=== PATIENT | male | born 1985 | race Caucasian/White ===

== ENCOUNTER 2017-03-01 22:40 | Emergency (ER) | payer MEDICAID ==
[~2017-03-01] VITALS: Ht 198.1 cm; Wt 108.4 kg
[~2017-03-01 22:40] MED LIST: ETODOLAC400 MG PO; LODINE400 MG PO
--- NOTE | 2017-03-01 23:11 | Emergency Room Report ---
History of Present Illness Time Seen by [id number] Presenting Problem in Triage Pt arrived:Wheelchair Presenting Problem:NAUSEATED X 9 HOURS, VOMITING X 3 HOURS. WORKED 03/01 FROM 9A TO 7P [employer]. 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 N Clinical Suspician of Infection? N Mental Status: 1 - Regular (Normal Baseline) Sepsis Risk:Low Sepsis Risk Have you (or family members/close friends) recently traveled outside the [place]? N If Yes, where/when: Have you had exposure to infectious disease within the past month? N TB? Other? Specify: Source patient, RN notes reviewed, family, old records Exam Limitations no limitations Comment pt with nausea and vomiting sec to working in tob today Cardiac Chest Pain Chest pain indicative of cardiac No Timing/Duration this evening Severity moderate ALLERGIES Coded Allergies: morphine (Mild, 07/09/15) Home Medications Reported Medications No Known Home Medications History Medical History General CAD? No Angina: No VT: No Hypertension? No Hyperlipidemia? No CHF? No DVT? No PE? No COPD? No Asthma? No Anemia? No GERD? No Gastric ulcers? No GI Bleed? No Hernia? No Thyroid Problems? No Hypothyroidism? No CVA? No Seizures? No Diabetes? No Insulin Dependent: No Insulin Pump: No Home FSBS? No Renal Insuffiency? No End Stage Renal Disease? No UTI? No Stones? Yes BPH? No GB Disease: No Nephritic Syndrome? No Asplenia? No Hepatitis? No Sickle Cell Disease? No Arthritis? No Migraines? No Cataracts? No Glaucoma? No MRSA? No HIV? No TB? No Anxiety? No Depression? No Cancer? No More? Yes Additional hx: CROHNS Immunization Hx DT/Tetanus < 1 YR AGO Surgical Hx Previous Surgery?Y TONS/ADNOIDS WISDOM TEETH Social History Smoking Hx Smoker: Never Smoker Tobacco: No Are you/the child exposed to second-hand smoke: No Alcohol Alcohol: Yes Drugs none Review of Systems All Other Systems Reviewed and Negative Constitutional denies fever Eyes denies drainage ENT denies: ear discharge, epistaxis, throat pain. Respiratory denies cough, denies shortness of breath, denies wheezing Cardiovascular denies chest pain, denies syncope Gastrointestinal see HPI, nausea, vomiting Genitourinary denies: dysuria, frequency, hesitancy, hematuria. Musculoskeletal denies back pain, denies joint pain, denies joint swelling, denies neck pain Skin denies rash Psychiatric/Neurological denies headache, denies seizure Physical Exam Vital Signs Vital Signs Date Time Temp Pulse Resp B/P Pulse O2 O2 Flow FiO2 Ox Delivery Rate 03/01 2321 66 20 148/86 96 03/01 2251 97.9 78 14 148/ 97 - WBC >12,000 or <4,000 or 10% bands? 2 or more SIRS Criteria Met? B/P:148/86 MAP:106 Creatinine >2.0? UA output<0.5ml/kg/hr for 2 hrs? Platelet count >100,000? Lactate >2.0mmol/1? INR >1.2 or PTT > than 60 sec? Evidence of Organ Dysfunction? Provider documented clinical suspician of infection? N Sepsis Criteria Count: 0 Sepsis Risk: Low Sepsis Risk General Appearance no apparent distress Eye Exam - bilateral eye PERRL, bilateral eye EOMI Ear, Nose, Throat normal ENT inspection Neck supple Respiratory Status No: respiratory distress. 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 No Results/Orders Laboratory Tests 03/01/17 2305: Sodium 138, Potassium 3.4 L, Chloride 103, Carbon Dioxide 27, BUN 18, Creatinine 1.2, Estimated Creat Clear 134, Estimated GFR (MDRD) 70, Glucose 121 H, Calcium 10.1, Total Bilirubin 0.6, AST 28, ALT 48, Alkaline Phosphatase 86, Total Protein 7.8, Albumin 4.4, Globulin 3.4 H, Albumin/Globulin Ratio 1.3, Amylase 34, Lipase 124, WBC 9.4, RBC 5.23, Hgb 15.6, Hct 44.2, MCV 84.5, RDW 12.6, Plt Count 228, MPV 10.1, Gran % 68.1, Gran # 6.4, Lymphocytes % 23.1, Monocytes % 6.0, Eosinophils % 2.3, Basophils % 0.4, Lymphocytes # 2.2, Monocytes # 0.6, Eosinophils # 0.2, Basophils # 0.0, PUBS MCHC 35.4, MCH 29.9 Current Medication Orders Sig/Brendan Start time Last Medication Dose Route Stop Time Status Admin Sodium Chloride 1,000 ML .STK-MED ONE 03/01 2353 DC IV Promethazine HCl 0 .STK-MED ONE 03/01 234 DC .ROUTE Sodium Chloride 50 ML .STK-MED ONE 03/01 2346 DC IV Promethazine HCl 12.5 MG ONCE ONE 03/01 2345 DC 03/01 IV 03/01 2346 234 Sodium Chloride 25 ML ONCE ONE 03/01 2345 DC 03/01 IV 03/01 235 2348 Sodium Chloride 1,000 ML .Q1H1M 03/01 2345 AC 03/01 IV 03/02 0045 2354 Sodium Chloride 10 ML PRN PRN 03/01 2345 AC IV 03/02 2351 Famotidine 0 .STK-MED ONE 03/01 230 DC IV Ondansetron HCl 0 .STK-MED ONE 03/01 230 DC .ROUTE Sodium Chloride 1,000 ML .STK-MED ONE 03/01 2302 DC IV Metoclopramide HCl 0 .STK-MED ONE 03/01 230 DC .ROUTE Famotidine 20 MG ONCE ONE 03/01 2300 DC 03/01 IV 03/01 230 2306 Metoclopramide HCl 10 MG ONCE ONE 03/01 2300 DC 03/01 IVP 03/01 2301 2305 Ondansetron HCl 4 MG ONCE ONE 03/01 230 DC 03/01 IV 03/01 2301 2307 Sodium Chloride 10 ML PRN PRN 03/01 2300 AC IV 03/02 2249 Sodium Chloride 1,000 ML .Q1H1M 03/01 2300 DC 03/01 IV 03/02 0000 2305 Sodium Chloride 10 ML PRN PRN 03/01 2300 AC IV 03/02 2249 Sodium Chloride 8 ML ONCE ONE 03/01 2300 DC 03/01 IV 03/01 2301 2307 Orders Procedure Date/time Status IV SALINE LOCK 092249 Active URINALYSIS/COMPLETE 03/01 2250 Active LIPASE 03/01 2250 Complete COMPLETE METABOLIC PANEL 03/01 2250 Complete CBC WITH AUTO DIFF 03/01 2250 Complete AMYLASE 03/01 2250 Complete Departure Departure Time of Disposition 003 Disposition DC Home or Self Care(routine) Clinical Impression Primary Impression: Tobacco poisoning Qualifiers: Encounter type: initial encounter Injury intent: accidental or unintentional Qualified Code: T65.291A - Toxic effect of other tobacco and nicotine, accidental (unintentional), initial encounter Condition STABLE Patient Instructions DI for Vomiting -- Adult Additional Instructions fluids and see pcp for follow up Discharge Counseling Counseled pt/family regarding diagnosis, test results, follow up needs Prescriptions Current Visit Scripts No Known Home Medications ED Critical Care Critical Care No at 0040
[2017-03-01 23:14] LABS: HEMOGLOBIN 15.6 g/dL (14.1-18.0); LYMPH # 2.2 K/mm3 (0.7-4.5); LYMPH % 23.1 % (10-50)
[2017-03-02 00:52] VITALS: BP 117/61
== END 2017-03-02 00:53 | disposition home or self-care (01) ==
LOC: ER 22:40
PROVIDERS: Emergency Medicine
DX: T65.291A Toxic effect of other tobacco and nicotine, accidental (unintentional), initial encounter (principal)
CPT/HCPCS: J2405

== ENCOUNTER 2017-03-24 02:51 | Emergency (ER) | payer MEDICAID ==
[~2017-03-24] VITALS: Ht 198.1 cm; Wt 104.3 kg
--- OUTSIDE RECORDS SUMMARY | 2017-03-24 03:18 | External Medical Summary Rpt | CCD ---
Author Author , YUNIER FAYE Address Unknown Phone [email or web address] Care Team Providers Care Greenskeeper Name Role Phone JOSY FRANKLIN, JOSY Unavailable Unavailable FRANKLIN PATRICK ALL, PATRICK ALL Unavailable Unavailable [facility] Unavailable Unavailable PHYSICIANS, [facility] Unavailable Unavailable INC, [facility] Unavailable Unavailable [facility]ING [facility], [facility] JOSS JENNIFER, JOSS Unavailable Unavailable JENNIFER LLAMAS LIBRA, LLAMAS Unavailable Unavailable B[facility], Unavailable Unavailable PLLC, [facility] YVROSE M, YVROSE M Unavailable Unavailable [facility] Unavailable Unavailable OF NOT, [facility] MCDONALD Unavailable Unavailable GEETA REID, Unavailable Unavailable CHANA REID [facility] Unavailable Unavailable PHYSICIANS, [facility] BOLD[facility], Unavailable Unavailable [facility] YUAN THRELKELD II RAKAN, Unavailable Unavailable THRELKELD II RAKAN Purpose Continuity of Care Document - 03-17-2015 through 2016 Problems Code Diagnosis DOS Provider Status K5090 CROHNS 07-11-2015 ST DISEASE [facility] WITHOUT PHYSICIANS COMPLICATIO NS N200 CALCULUS OF 07-11-2015 KIDNEY [facility] PHYSICIANS N410 ACUTE 07-11-2015 PROSTATITIS [place] [facility] R1031 RIGHT LOWER 07-11-2015 [facility] [place] PAIN YUAN R1030 LOWER 07-09-2015 [place] [facility] PAIN [facility]AGING ASS UNSPECIFIED Z720 TOBACCO USE 07-09-2015 [facility] [id number] PERSONAL 07-09-2015 [facility]ORY [facility] URINARY INC CALCULI N23 UNSPECIFIED 07-07-2015 [facility] COLIC PHYSICIANS R109 UNSPECIFIED 07-07-2015 [facility] PAIN OF [facility] K6389 OTHER 04-24-2015 [place] SPECIFIED MEDICAL DISEASES OF IMAGING ASS INTESTINE N3289 OTHER 04-24-2015 [place] SPECIFIED MEDICAL DISORDERS IMAGING ASS OF BLADDER R1084 GENERALIZED 04-24-2015 [facility] ABDOMINAL PHYSICIANS, PAIN PLLC [id number] SPRAIN 04-07-2015 OTHER [facility] LIGAMENT LT PHYSICIANS ANKLE INITIAL ENCOUNTER T1490 INJURY 04-07-2015 UNSPECIFIED [facility] PH[facility]ICIANS B36313 PAIN IN 03-17-2015 [place] [facility]OW [facility] [id number] UNSPECIFIED 03-17-2015 [facility] RIGHT ELBOW INC INITIAL ENCOUNTER [id number] UNSPECIFIED 03-17-2015 [facility] [place] PHYSIC[facility]ANS, LEFT ELBOW [facility] INITIAL ENCOUNTER K50.111 Crohn's disease of large intestine with rectal bleeding M79.604 Pain In Right Leg R07.9 Chest pain, unspecified S50.01XA Contusion of right elbow, initial encounter S61.219A Laceration without foreign body of unspecified finger without damage to nail, initial encounter T15.91XA Foreign body on external eye, part unspecified , right eye, initial encounter Procedures Procedure [place] [address] [facility] ABDOMEN & 6 [place] [place] PELVIS YUAN YUAN W/CONTRAS T MATERIAL LOCM Q9967 [facility] 300-399 6 [facility] [place] MG/ML YUAN YU[place] [address] [facility] INFUSION 6 [facility] THERAPY/P INC INC ROPHYLAXI S /DX 1ST TO 1 HR THERAPEUT 22007 [facility] IC 6 [facility] INJECTION INC INC IV PUSH EACH NEW DRUG INJECTION J2405 [facility] 6 [facility] ONDANSETR INC INC ON HCL PER 1 MG URNLS DIP 05556 [facility] 6 [facility] STICK/TAB INC INC LET REAGENT AUTO MICROSCOP Y BLOOD 81034 [facility] COUNT 6 [facility] COMPLETE INC INC AUTO&AUTO DIFRNTL WBC COMPREHEN 20661 [facility] SIVE 6 [facility] [place] [address] [place] PATRICK ALL ABDOMEN & 6 MEDICAL PELVIS IMAGING W/[place] [address] [facility] [place] ABDOMEN & 6 BRA PELVIS ASSOCIATE W/[place] [address] [facility] [place] ABDOMEN & 5 [facility] PELVIS INC INC W/O CONTRAST MATERIAL COMPREHEN 61429 [facility] SIVE 5 [facility] [place] [address] OPAL [facility] AMYLASE 5 [facility] INC INC BLOOD 98686 [facility] COUNT 5 [facility] COMPLETE INC INC AUTO&AUTO DIFRNTL WBC URNLS DIP 13416 [facility] 5 [facility] STICK/TAB INC INC LET REAGENT AUTO MICROSCOP Y THERAPEUT 34135 [facility] IC 5 [facility] H[facility] INJECTION [place] [address] [facility] INFUSION 5 [facility] THERAPY/P INC INC ROPHYLAXI S /DX 1ST TO 1 HR INJECTION J2405 [facility] 5 [facility] ONDANSETR INC INC ON HCL PER 1 [place] [address] [facility] LIPASE 5 [facility] INC INC RADEX [address] ST YVROSE M ANKLE 5 [facility] COMPLETE MINIMUM 3 PHYSICIAN VIEWS S ANKLE L4350 ST YVROSE M CONTROL 5 [facility] ORTHOSIS STIRRUP PHYSICIAN STYL S RIGID PREFAB RADEX 23696 [place] BEINE[place] EL[place] 5 MEDICAL [place] COMPLETE IMAGING MINIMUM 3 ASS VIEWS Encounters Encounter Start End Date Code Location Performer Type Date OFFICE [address] [facility] OUTPATIEN 6 6 [place] II RAKAN T VISIT 25 PHYSICIAN MINUTES [facility] ST. - 6 6 [place] OUTPATIEN YUAN T EMERGENCY 86650 [facility] DEPT 6 6 PHYSICIAN U FRANKLIN VISIT S, [facility] HIGH SEVERITY& THREAT [facility] OPAL - 6 6 [facility] OUTPATIEN INC T EMERGENCY 40080 OPAL 6 6 [facility] DEPARTMEN INC T VISIT MODERATE SEVERITY EMERGENCY 53209 CLARENCE SALINAS 6 6 [facility]IAN HIGH/URGE S NT SEVERITY EMERGENCY 49941 [facility] DEPT 5 5 PHYSICIAN Alexandre REID VISIT S, PLLC HIGH SEVERITY& THREAT [facility] EMERGENCY 99459 [facility] 5 5 [facility] T VISIT HIGH/URGE NT SEVERITY HOSPITAL OPAL - 5 5 MEM H[facility] OUTPATIEN INC T OFFICE [address] [facility] 5 5 [place] T NEW [address] [facility] OPAL - 5 5 [facility] OUTPATIEN INC T EMERGENCY 00501 BLESS[facility] COREAS 5 5 PHYSICIAN JENNIFER VALDES S, [facility] T VISIT MODERATE SEVERITY EMERGENCY 63673 OP[facility] 5 5 [facility] T VISIT LOW/MODER SEVERITY
--- OUTSIDE RECORDS SUMMARY | 2017-03-24 03:18 | External Medical Summary Rpt | CCD ---
Demographics Home Phone Preferred Language Hungarian Marital Status Unknown Yazidism Affiliation Unknown Race Unknown Ethnic Group Unknown Author Author , YUNIER FAYE Address Unknown Phone [email or web address] Immunization Name Date Rout CVX Reac Dose Comm Prov Is Faci e tion ent ider Refu lity Give sed n Tdap 02-1 Intr 115 999 Hist 1050 No 1050 , 5-20 amus oric 0 0 Adso 16 cula al rbed r Info rmat ion - Sour ce Unsp ecif ied
--- OUTSIDE RECORDS SUMMARY | 2017-03-24 03:18 | External Medical Summary Rpt | CCD ---
Demographics Home Phone Preferred Language Pashto Marital Status Unknown Judaism Affiliation Unknown Race Unknown Ethnic Group Unknown Author Author , YUNIER FAYE Address Unknown Phone Immunization Name Date Rout CVX Reac Dose Comm Prov Is Faci e tion ent ider Refu lity Give sed n Tdap 02-1 Intr 115 999 Hist 1050 No 1050 , 5-20 amus oric 0 0 Adso 16 cula al rbed r Info rmat ion - Sour ce Unsp ecif ied
--- OUTSIDE RECORDS SUMMARY | 2017-03-24 03:18 | External Medical Summary Rpt | CCD ---
Author Author , YUNIER FAYE Address Unknown Phone [email or web address] Care Team Providers Care Director Of Corporate Responsibility Name Role Phone JOSY FRANKLIN, ULISESNASEEMMARK Unavailable Unavailable FRANKLIN PATRICK ALL, PATRICK ALL Unavailable Unavailable [facility] Unavailable Unavailable PHYSICIANS, [facility] SULMA ANAMARIA, Unavailable Unavailable [facility] Unavailable Unavailable INC, [facility] Unavailable Unavailable [facility], [facility] JOSS JENNIFER, JOSS Unavailable Unavailable JENNIFER LLAMAS BRA, LLAMAS Unavailable Unavailable [facility], Unavailable Unavailable PLLC, [facility] YVROSE M, YVROSE M Unavailable Unavailable [facility] Unavailable Unavailable OF NOT, [facility] BRAD MCDONALD Unavailable Unavailable GEETA REID, Unavailable Unavailable CHANA REID [facility] Unavailable Unavailable PHYSICIANS, [facility]ICIANS [facility] BOLDEN, Unavailable Unavailable [facility] YUAN THRELKELD II RAKAN, Unavailable Unavailable THRELKELD II RAKAN Purpose Continuity of Care Document - 03-17-2015 through 2016 Problems Code Diagnosis DOS Provider Status K5090 CROHNS 07-11-2015 ST DISEASE [facility] WITHOUT PHYSICIANS COMPLICATIO NS N200 CALCULUS OF 07-11-2015 ST KIDNEY [facility] PHYSICIANS N410 ACUTE 07-11-2015 ST PROSTATITIS [facility] PHYSICIANS R1031 RIGHT LOWER 07-11-2015 [facility] PAIN YUAN R1030 LOWER 07-09-2015 [place] [facility] IMAGING ASS UNSPECIFIED Z720 TOBACCO USE 07-09-2015 [facility] [id number] PERSONAL 07-09-2015 [facility] H[facility]ORY [facility] URINARY INC CALCULI N23 UNSPECIFIED 07-07-2015 [facility] RENAL EMERGENCY COLIC PHYSICIANS R109 UNSPECIFIED 07-07-2015 [facility] PAIN OF [facility] K6389 OTHER 04-24-2015 [place] SPECIFIED MEDICAL DISEASES OF IMAGING ASS INTESTINE N3289 OTHER 04-24-2015 [place] SPECIFIED MEDICAL DISORDERS IMAGING ASS OF BLADDER R1084 GENERALIZED 04-24-2015 [facility], PAIN PLLC [id number] SPRAIN 04-07-2015 OTHER [facility] LIGAMENT LT PHYSICIANS ANKLE INITIAL ENCOUNTER T1490 INJURY 04-07-2015 UNSPECIFIED [facility] PHYSICIANS I58358 PAIN IN 03-17-2015 [place] [facility]OW [facility] IM[facility] [id number] UNSPECIFIED 03-17-2015 [facility] RIGHT ELBOW INC INITIAL ENCOUNTER S60660U UNSPECIFIED 03-17-2015 [facility], LEFT ELBOW PLLC INITIAL ENCOUNTER Procedures Procedure DOS Code Location Performer Comment LOCM Q9967 [facility] 300-399 6 [facility] [place] MG/ML YUAN YU[place] [address] [facility] [place]SE[place] PELVIS YUAN YUAN W/CONTRAS T MATERIAL THERAPEUT 93474 [facility] IC 6 [facility] INJECTION [place] [address] [facility] INFUSION 6 [facility] THERAPY/P INC INC ROPHYLAXI S /DX 1ST TO 1 HR INJECTION J2405 [facility] 6 [facility] ONDANSETR INC INC ON HCL PER 1 MG URNLS DIP 78533 [facility] 6 [facility] STICK/TAB INC INC LET REAGENT AUTO MICROSCOP Y COMPREHEN 42666 [facility] SIVE 6 [facility] [place] [address] [place] PATRICK ALL ABDOMEN & 6 MEDICAL PELVIS IMAGING W/O ASS CONTRAST MATERIAL BLOOD 99548 [facility] COUNT 6 [facility] COMPLETE INC INC AUTO&[place] [address] [facility] [place] ABDOMEN & 6 BRA PELVIS ASSOCIATE W/[place] [address] [place] [facility]UL[facility] ABDOMEN & 5 MEDICAL ANAMARIA PELVIS IMAGING W/[place] [address] [facility] LIPASE 5 [place] [address] [facility] AMYLASE 5 [facility] INC INC COMPREHEN 11634 [facility] SIVE 5 [facility] METABOLIC INC INC PANEL INJECTION J2405 [facility] 5 [facility] ONDANSETR INC INC ON HCL PER 1 MG BLOOD 72574 [facility] COUNT 5 [facility] COMPLETE INC INC AUTO&AUTO DIFRNTL WBC URNLS DIP 49348 [facility] 5 [facility] STICK/TAB INC [place] [address] [facility] INFUSION 5 [facility] THERAPY/P INC INC ROPHYLAXI S /DX 1ST TO 1 HR THERAPEUT 85561 [facility] IC 5 [facility] INJECTION INC INC IV PUSH EACH NEW DRUG RADEX 93896 ST YVROSE M ANKLE 5 [place] COMPLETE MINIMUM 3 PHYSICIAN VIEWS S ANKLE L4350 ST YVROSE M CONTROL 5 [facility] ORTHOSIS STIRRUP PHYSICIAN STYL S RIGID PREFAB RADEX 88012 [place] BEINEKE ELBOW 5 MEDICAL [place] COMPLETE IMAGING MINIMUM 3 ASS VIEWS Encounters Encounter Start End Date Code Location Performer Type Date HOSPITAL ST[facility] - 6 6 [place] OUTJESSEEN YUAN T OFFICE [facility] [place] T VISIT 25 PHYSICIAN MINUTES S EMERGENCY 12677 [facility] DEPT 6 6 PHYSICIAN U FRANKLIN VISIT S, PLLC HIGH SEVERITY& THREAT [facility] - 6 6 [facility] OUTPATIEN INC T EMERGENCY 79286 OPAL 6 6 [facility] DEPARTMEN INC T VISIT MODERATE SEVERITY EMERGENCY 69275 CL[facility] SALINAS 6 6 EMERGENCY [facility] T VISIT PHYSICIAN HIGH/URGE S NT SEVERITY HOSPITAL OPAL - 5 5 [facility] OUTPATIEN INC T EMERGENCY 01825 OPAL 5 5 [facility] DEPARTMEN INC T VISIT HIGH/URGE NT SEVERITY EMERGENCY 49390 [facility] DEPT 5 5 PHYSICIAN Alexandre REID VISIT S [facility] HIGH SEVERITY& THREAT FUN OFFICE [address] [facility] OUTPATIEN 5 5 [place] NEW [address] [facility] OPAL - 5 5 [facility] OUTPATIEN INC T EMERGENCY 01299 [facility] 5 5 PHYSICIAN JENNIFER Patel [facility] T VISIT MODERATE SEVERITY EMERGENCY 78039 OPAL 5 5 [facility] DEPARTMEN INC T VISIT LOW/MODER SEVERITY
--- OUTSIDE RECORDS SUMMARY | 2017-03-24 03:18 | External Medical Summary Rpt | CCD ---
Author Author , YUNIER FAYE Address Unknown Phone [email or web address] Care Team Providers Care Child Care Team Lead Name Role Phone JOSY FRANKLIN, ULISESNASEEMMARK Unavailable Unavailable FRANKLIN PATRICK ALL, PATRICK ALL Unavailable Unavailable [facility] Unavailable Unavailable PHYSICIANS, [facility] SULMA ANAMARIA, Unavailable Unavailable [facility]UL[facility] ANAMARIA [facility] Unavailable Unavailable [facility], [facility] Unavailable Unavailable [facility], [facility] JOSS JENNIFER, JOSS Unavailable Unavailable JENNIFER LLAMAS BRA, LLAMAS Unavailable Unavailable BRA [facility], Unavailable Unavailable PLL[facility], [facility] YVROSE M, YVROSE M Unavailable Unavailable [facility] Unavailable Unavailable OF NOT, [facility] BRAD MCDONALD Unavailable Unavailable GEETA [...] QUADRANT [place] PAIN YUAN R1030 LOWER 07-09-2015 [place] ABD[facility]INAL [facility] PAIN [facility]ING ASS UNSPECIFIED Z720 TOBACCO USE 07-09-2015 [facility] [id number] PERSONAL 07-09-2015 [facility] URINARY INC CALCULI N23 UNSPECIFIED 07-07-2015 [facility] RENAL EMERGENCY COLIC PHYSICIANS R109 UNSPECIFIED 07-07-2015 [facility] PAIN OF [facility] K6389 OTHER 04-24-2015 [place] SPECIFIED MEDICAL DISEASES OF IMAGING ASS INTESTINE N3289 OTHER 04-24-2015 [place] SPECIFIED MEDICAL DISORDERS IMAGING ASS OF BLADDER R1084 GENERALIZED 04-24-2015 [facility], PAIN PLLC [id number] SPRAIN 04-07-2015 OTHER [facility] LIGAMENT LT PHYSICIANS ANKLE INITIAL ENCOUNTER T1490 INJURY 04-07-2015 UNSPECIFIED [facility] PH[facility]ICIANS V79346 PAIN IN 03-17-2015 [place] RIGHT ELBOW MEDICAL IMAGING ASS [id number] UNSPECIFIED 03-17-2015 [facility] RIGHT ELBOW INC INITIAL ENCOUNTER [id number] UNSPECIFIED 03-17-2015 [facility], LEFT ELBOW PLLC INITIAL ENCOUNTER Procedures Procedure DOS Code Location Performer Comment LOCM Q9967 [facility] [phone] 6 [facility] [place] MG/ML YUAN YU[place] [address] [facility] ABDOMEN & 6 [facility] POSEY PELVIS YUAN YUAN W/CONTRAS T MATERIAL THERAPEUT 51892 [facility] IC 6 [facility] INJECTION [place] [address] [facility] INFUSION 6 [facility] THERAPY/P INC INC ROPHYLAXI S /DX 1ST TO 1 HR INJECTION J2405 [facility] 6 [facility] ONDANSETR INC INC ON HCL PER 1 MG URNLS DIP 20145 [facility] 6 [facility] STICK/TAB INC INC LET REAGENT AUTO MICROSCOP Y COMPREHEN 52977 [facility] SIVE 6 [facility] [place] [address] [place] PATRICK ALL ABDOMEN & 6 MEDICAL PELVIS IMAGING W/O ASS CONTRAST MATERIAL BLOOD 38296 [facility] COUNT 6 [facility] COMPLETE INC INC AUTO&[place] [address] [facility] ABDOMEN & 6 BRA PELVIS ASSOCIATE W/[place] [address] [place] SULMA ABDOMEN & 5 MEDICAL ANAMARIA PELVIS IMAGING W/[place] [address] OPAL [facility] LIPASE 5 [place] [address] [facility] AMYLASE 5 [facility] INC INC COMPREHEN 69118 [facility] SIVE 5 [facility] METABOLIC INC INC PANEL INJECTION J2405 [facility] 5 [facility] ONDANSETR INC INC ON HCL PER 1 MG BLOOD 37778 [facility] COUNT 5 [facility] COMPLETE INC INC AUTO&AUTO DIFRNTL WBC URNLS DIP 18733 [facility] 5 [facility] STICK/TAB INC [place] [address] [facility] INFUSION 5 [facility] THERAPY/P INC INC ROPHYLAXI S /DX 1ST TO 1 HR THERAPEUT 68012 [facility] IC 5 [facility] INJECTION INC INC IV PUSH EACH NEW DRUG RADEX 11568 ST YVROSE M ANKLE 5 [facility] COMPLETE MINIMUM 3 PHYSICIAN VIEWS S ANKLE L4350 ST YVROSE M CONTROL 5 [facility] ORTHOSIS STIRRUP PHYSICIAN STYL S RIGID PREFAB RADEX 70834 [place] BEINEKE ELBOW 5 MEDICAL [place] COMPLETE IMAGING MINIMUM 3 ASS VIEWS Encounters Encounter Start End Date Code Location Performer Type Date [facility]OSPITAL ST[facility] - 6 6 [facility] OUTJESSEEN YUAN T OFFICE 85979 [facility] 6 6 [place] T VISIT 25 PHYSICIAN MINUTES S EMERGENCY 12924 [facility] DEPT 6 6 PHYSICIAN U FRANKLIN VISIT S, PLLC HIGH SEVERITY& THREAT [facility] - 6 6 [facility] OUTPATIEN INC T EMERGENCY 41590 [facility] 6 6 [facility] DEPARTMEN INC T VISIT MODERATE SEVERITY EMERGENCY 67032 [facility] SALINAS 6 6 EMERGENCY [facility] T VISIT PHYSICIAN HIGH/URGE S NT SEVERITY HOSPITAL OPAL - 5 5 [facility] OUTPATIEN INC T EMERGENCY 71650 [facility] 5 5 [facility] DEPARTMEN INC T VISIT HIGH/URGE NT SEVERITY EMERGENCY 20973 [facility] DEPT 5 5 PHYSICIAN Alexandre REID VISIT [facility] HIGH SEVERITY& THREAT FUN OFFICE [address] [facility] OUTPATIEN 5 5 [facility] Rasmussen NEW 30 MINUTES [facility] OPAL - 5 5 [facility] OUTPATIEN INC T EMERGENCY 80702 [facility]ORE[facility] [address] [facility] T VISIT MODERATE SEVERITY EMERGENCY 60864 [facility] 5 5 [facility] DEPARTMEN INC T VISIT LOW/MODER SEVERITY
--- OUTSIDE RECORDS SUMMARY | 2017-03-24 03:18 | External Medical Summary Rpt ---
Author Author YUNIER Shannon, [employer]IER [employer] Organization [employer] Address Unknown Phone Unavailable
--- OUTSIDE RECORDS SUMMARY | 2017-03-24 03:18 | External Medical Summary Rpt | CCD ---
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AL[facility]Y BOLDEN, Unavailable Unavailable [facility] YUAN THRELKELD II RAKAN, Unavailable Unavailable THRELKELD II RAKAN Purpose Continuity of Care Document - 03-17-2015 through 2016 Problems Code Diagnosis DOS Provider Status K5090 CROHNS 07-11-2015 ST DISEASE [facility] WITHOUT PHYSICIANS COMPLICATIO NS N200 CALCULUS OF 07-11-2015 KIDNEY [facility] PHYSICIANS N410 ACUTE 07-11-2015 PROSTATITIS [facility] R1031 RIGHT LOWER 07-11-2015 [facility]. [facility] GUYS PAIN YUAN R1030 LOWER 07-09-2015 [place] A[facility]AL [facility]ICAL PAIN IMAGING ASS UNSPECIFIED Z720 TOBACCO USE 07-09-2015 [facility] INC Z65110 PERSONAL 07-09-2015 [facility] URINARY INC CALCULI N23 UNSPECIFIED 07-07-2015 [facility] COLIC PHYSICIANS R109 UNSPECIFIED 07-07-2015 [facility] PAIN OF [facility] K6389 OTHER 04-24-2015 [place] SPECIFIED MEDICAL DISEASES OF IMAGING ASS INTESTINE N3289 OTHER 04-24-2015 [place] SPECIFIED MEDICAL DISORDERS IMAGING ASS OF BLADDER R1084 GENERALIZED 04-24-2015 [facility], PAIN PLLC [id number] SPRAIN 04-07-2015 OTHER [facility] LIGAMENT LT PHYSICIANS ANKLE INITIAL ENCOUNTER T1490 INJURY 04-07-2015 UNSPECIFIED [facility] PHYSICIANS Q54486 PAIN IN 03-17-2015 [place] RIGHT [facility]OW MEDICAL IM[facility]ING [facility] B66915M UNSPECIFIED 03-17-2015 [facility] RIGHT ELBOW INC INITIAL ENCOUNTER J13128M UNSPECIFIED 03-17-2015 [facility], LEFT ELBOW [facility] INITIAL ENCOUNTER K50.111 Crohn's disease of large intestine with rectal bleeding M79.604 Pain In Right Leg R07.9 Chest pain, unspecified S50.01XA Contusion of right elbow, initial encounter S61.219A Laceration without foreign body of unspecified finger without damage to nail, initial encounter T15.91XA Foreign body on external eye, part unspecified , right eye, initial encounter Procedures Procedure [place] [address] [facility] ABDOMEN & 6 [facility] [place] PELVIS YUAN YUAN W/CONTRAS T MATERIAL LOCM Q9967 [facility] 300-399 6 [facility] [place] MG/ML YUAN YU[place] [address] [facility] INFUSION 6 [facility] THERAPY/P INC INC ROPHYLAXI S /DX 1ST TO 1 HR THERAPEUT 53225 [facility] IC 6 [facility] INJECTION INC INC IV PUSH EACH NEW DRUG INJECTION J2405 [facility] 6 [facility] ONDANSETR INC INC ON HCL PER 1 MG URNLS DIP 50724 [facility] 6 [facility] STICK/TAB INC INC LET REAGENT AUTO MICROSCOP Y BLOOD 73639 [facility] COUNT 6 [facility] COMPLETE INC INC AUTO&AUTO DIFRNTL WBC COMPREHEN 54798 [facility] SIVE 6 [facility] [place] [address] [place] PATRICK ALL ABDOMEN & 6 MEDICAL PELVIS IMAGING [place] [address] [facility] [place] ABDOMEN & 6 BRA PELVIS ASSOCIATE W/[place] [address] OPAL [place] ABDOMEN & 5 [facility] PELVIS INC INC W/O CONTRAST MATERIAL COMPREHEN 34689 [facility] SIVE 5 [facility] [place] [address] OPAL OPAL AMYLASE 5 [facility] INC INC BLOOD 74028 OP[facility] COUNT 5 [facility] COMPLETE INC INC AUTO&AUTO DIFRNTL WBC URNLS DIP 16670 OP[facility] JO[facility]PH 5 [facility] STICK/TAB INC INC LET REAGENT AUTO MICROSCOP Y THERAPEUT 22692 [facility] IC 5 [facility] INJECTION INC [place] [address] [facility] INFUSION 5 [facility] THERAPY/P INC INC ROPHYLAXI S /DX 1ST TO 1 HR INJECTION J2405 [facility] 5 [facility] ONDANSETR INC INC ON HCL PER 1 [place] [address] [facility] LIPASE 5 [facility] INC INC RADEX 03407 ST YVROSE M ANKLE 5 [facility] COMPLETE MINIMUM 3 PHYSICIAN VIEWS S ANKLE L4350 ST YVROSE M CONTROL 5 [facility] ORTHOSIS STIRRUP PHYSICIAN STYL S RIGID PREFAB RADEX 02318 [place] BEINEKE ELBOW 5 MEDICAL [place] COMPLETE IMAGING MINIMUM 3 ASS VIEWS Encounters Encounter Start End Date Code Location Performer Type Date OFFICE [address] [facility] OUTPATIEN 6 6 [place] II RAKAN T VISIT 25 PHYSICIAN MINUTES [facility] ST. - 6 6 [place] OUTPATIEN YUAN T EMERGENCY 78830 [facility] DEPT 6 6 PHYSICIAN U FRANKLIN VISIT S, [facility] HIGH SEVERITY& THREAT [facility] OPAL - 6 6 [facility] OUTPATIEN INC T EMERGENCY 34317 OPAL 6 6 [facility] DEPARTMEN INC T VISIT MODERATE SEVERITY EMERGENCY 05542 [facility] SALINAS 6 6 EMERGENCY [facility] VIS[facility] PHYSICIAN HIGH/URGE S NT SEVERITY EMERGENCY 73113 [facility] DEPT 5 5 PHYSICIAN Alexandre REID VISIT S, PLLC HIGH SEVERITY& THREAT [facility] EMERGENCY 04542 OP[facility] 5 5 [facility] T VISIT HIGH/URGE NT SEVERITY HOSPITAL OPAL - 5 5 [facility] OUTPATIEN INC T OFFICE 79936 [facility] [place] T NEW 30 MINUTES [facility] - 5 [facility] OUT[facility] T EMERGENCY 69827 [facility] 5 5 PHYSICIAN JENNIFER VALDES S, [facility] T VISIT MODERATE SEVERITY EMERGENCY 11009 OP[facility] 5 5 [facility] T VISIT LOW/MODER SEVERITY
--- NOTE | 2017-03-24 03:19 | Emergency Room Report ---
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 N Clinical Suspician of Infection? N Mental Status: 1 - Regular (Normal Baseline) Sepsis Risk:Low Sepsis Risk Have you (or family members/close friends) recently traveled outside the [place]? N If Yes, where/when: Have you had exposure to infectious disease within the past month? N TB? Other? Specify: Source patient, RN notes reviewed, family, old records Exam Limitations no limitations Comment pt with progressive rt lower abd pain with dec po intake Cardiac Chest Pain Chest pain indicative of cardiac No Timing/Duration this evening Severity moderate ALLERGIES Coded Allergies: morphine (Mild, 07/09/15) Home Medications Reported Medications No Known Home Medications History Medical History General CAD? No Angina: Yes [place]: No Hypertension? No Hyperlipidemia? No CHF? No DVT? No PE? No COPD? No Asthma? No Anemia? No GERD? No Gastric ulcers? No GI Bleed? No Hernia? No Thyroid Problems? No Hypothyroidism? No CVA? No Seizures? No Diabetes? No Insulin Dependent: No Insulin Pump: No Home FSBS? No Renal Insuffiency? No End Stage Renal Disease? No UTI? No Stones? Yes BPH? No GB Disease: No Nephritic Syndrome? No Asplenia? No Hepatitis? No Sickle Cell Disease? No Arthritis? No Migraines? No Cataracts? No Glaucoma? No MRSA? No HIV? No TB? No Anxiety? No Depression? No Cancer? No More? Yes Additional hx: CROHNS Immunization Hx DT/Tetanus < 1 YR AGO Surgical Hx Previous Surgery?Y TONS/ADNOIDS WISDOM TEETH Social History Smoking Hx Smoker: Never Smoker Tobacco: No Alcohol Alcohol: Yes Drugs none Review of Systems All Other Systems Reviewed and Negative Constitutional denies fever Eyes denies drainage ENT denies: ear discharge, epistaxis, throat pain. Respiratory denies cough, denies shortness of breath Cardiovascular denies chest pain, denies palpitations, denies syncope Gastrointestinal see HPI, abdominal pain, denies diarrhea, nausea, vomiting Genitourinary denies: dysuria, frequency, hesitancy, hematuria. Musculoskeletal denies back pain, denies joint pain, denies joint swelling, denies neck pain Skin denies rash Psychiatric/Neurological denies headache, denies seizure Physical Exam Vital Signs Vital Signs Date Time Temp Pulse Resp B/P Pulse O2 O2 Flow FiO2 Ox Delivery Rate 03/24 0438 20 03/24 0257 97.7 78 20 147/95 98 - WBC >12,000 or <4,000 or 10% bands? 2 or more SIRS Criteria Met? B/P:147/95 MAP:112 Creatinine >2.0? UA output<0.5ml/kg/hr for 2 hrs? Platelet count >100,000? Lactate >2.0mmol/1? INR >1.2 or PTT > than 60 sec? Evidence of Organ Dysfunction? Provider documented clinical suspician of infection? N Sepsis Criteria Count: 1 Sepsis Risk: Low Sepsis Risk General Appearance no apparent distress Eye Exam - bilateral eye PERRL, bilateral eye EOMI Ear, Nose, Throat normal ENT inspection Neck supple Respiratory Status No: respiratory distress. Lung Sounds bilateral: lungs clear. 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 No Results/Orders Laboratory Tests 03/24/17 0525: Urine Color YELLOW, Urine Appearance CLOUDY, Urine pH 7.0, Ur Specific Minetto 1.015, Urine Protein NEGATIVE, Urine Ketones NEGATIVE, Urine Blood NEGATIVE, Urine Nitrate NEGATIVE, Urine Bilirubin NEGATIVE, Urine Urobilinogen 0.2, Ur Leukocyte Esterase NEGATIVE, Amorphous Sediment 4+, Urine Glucose NEGATIVE 03/24/17 0307: Sodium 140, Potassium 3.7, Chloride 103, Carbon Dioxide 31, BUN 16, Creatinine 1.1, Estimated Creat Clear 141, Estimated GFR (MDRD) 77, Glucose 104, Calcium 9.5, Total Bilirubin 0.2, AST 16, ALT 45, Alkaline Phosphatase 92, Total Protein 7.5, Albumin 3.8, Globulin 3.7 H, Albumin/Globulin Ratio 1.0 L, Amylase 38, Lipase 202, WBC 7.4, RBC 5.14, Hgb 15.1, Hct 44.4, MCV 86.3, RDW 12.7, Plt Count 223, MPV 10.8 H, Gran % 48.3, Gran # 3.6, Lymphocytes % 41.7, Monocytes % 5.4, Eosinophils % 4.0, Basophils % 0.6, Lymphocytes # 3.1, Monocytes # 0.4, Eosinophils # 0.3, Basophils # 0.0, PUBS MCHC 34.1, MCH 29.4 Current Medication Orders Sig/Brendan Start time Last Medication Dose Route Stop Time Status Admin Sodium Chloride 1,000 ML .STK-MED ONE 03/24 434 DC IV Ketorolac 0 .STK-MED ONE 03/243 DC Tromethamine .ROUTE Ketorolac 30 MG ONCE ONE 03/24 430 DC 03/24 Tromethamine IV 03/24 0431 0438 Sodium Chloride 1,000 ML .Q1H1M 03/24 430 DC 03/24 IV 03/24 0530 0436 Sodium Chloride 10 ML PRN PRN 03/24 0430 AC IV 03/25 0430 Sodium Chloride 10 ML PRN PRN 03/24 0300 AC IV 03/25 0258 Orders Procedure Date/time Status DIET-NOTHING BY MOUTH 03/[address] ABD & PELVIS W/O CONTRAST 03/[address] SCAN REQ 03/24 258 Active IV SALINE LOCK 03/24 258 Active URINALYSIS/COMPLETE 03/24 258 Complete LIPASE 03/24 258 Complete COMPLETE METABOLIC PANEL 03/24 258 Complete CBC WITH AUTO DIFF 03/24 258 Complete AMYLASE 03/24 258 Complete XRAY/CT/US XRAY/CT/US CT abdomen, pelvis CT interpretation by discussed w/radiologist Time results known: 414 CT Results abnormal (see report) Departure Departure Time of Disposition 0546 Disposition DC Home or Self Care(routine) Clinical Impression Primary Impression: Abdominal pain Qualifiers: Abdominal location: right lower quadrant Qualified Code: R10.31 - Right lower quadrant pain Condition STABLE Patient Instructions DI for Abdominal Pain-Adult Additional Instructions fluids and see pcp about gb eval Discharge Counseling Counseled pt/family regarding diagnosis, test results, follow up needs Prescriptions Current Visit Scripts No Known Home Medications ED Critical Care Critical Care No at 6498
[2017-03-24 03:20] LABS: HEMOGLOBIN 15.1 g/dL (14.1-18.0); LYMPH # 3.1 K/mm3 (0.7-4.5); LYMPH % 41.7 % (10-50)
[2017-03-24 05:34] LABS: URINE BILIRUBIN - DIPSTICK NEGATIVE (NEG); URINE BLOOD NEGATIVE (NEG)
--- NOTE | 2017-03-24 05:58 | RADIOLOGY REPORT PS360 ---
CT ABD PELVIS W/O CONTRAST CLINICAL INDICATION: Epigastric pain radiating to the right side of the abdomen with history of Crohn's disease ABD PAIN ORDERING PHYSICIAN: Italia Lyons MD PATIENT AGE: 31 years COMPARISON: None TECHNIQUE: Axial images obtained with sagittal and coronal reformats. PROCEDURE: Oral Contrast: None IV Contrast: None . FINDINGS: Lung bases are clear. The liver is unremarkable. Gallbladder is contracted. No radio opaque stones. The spleen, adrenal glands, and pancreas are unremarkable. There are nonobstructing bilateral renal calculi measuring up to 7 x 2 mm in the upper pole on the left. No intestinal structures are free air. No evidence of appendicitis. There is an appendicolith present. There is nondistention versus thickening of the hepatic flexure of the colon as well as the sigmoid colon. No pericolic stranding of the fat is evident. The terminal ileum has an unremarkable appearance. No acute bony anomalies. IMPRESSION: 1. Bilateral nephrolithiasis. 2. Appendicolith. 3. Thickening of the hepatic flexure and sigmoid colon which may be due to colitis or nondistention. If pain persists, consider repeating exam with IV and oral contrast.
[2017-03-24 06:12] VITALS: BP 146/88
== END 2017-03-24 06:13 | disposition home or self-care (01) ==
LOC: ER 02:51
PROVIDERS: Emergency Medicine
DX: R10.31 Right lower quadrant pain (principal); Z87.442 Personal history of urinary calculi; K50.90 Crohn's disease, unspecified, without complications